=== PATIENT | female | born 1935 | race Caucasian/White ===

== ENCOUNTER → 2017-08-11 | Outpatient (CLI) | payer MEDICARE, BC ==
--- NOTE | 2017-08-11 18:44 | MR ---
EXAMINATION TYPE: MR brain wo/w con DATE OF EXAM: 08/11/2017 COMPARISON: NONE HISTORY: Memory loss, change in gait, urinary incontinence TECHNIQUE: Multiplanar, multisequence images of the brain and brainstem is performed without and with IV contras t, utilizing 7 mL intravenous Gadavist . FINDINGS: Artifact is present. Diffusion weighted images demonstrate no evidence of a recent infarct or other diffusion abnormality. There is no extra-axial fluid collection. Periventricular, subcorti eber white matter shows scattered and confluent hyperintensity on inversion recovery and T2-weighted s equences. No evident hemorrhage. The ventricular system and cisternal spaces are prominent thought to be in accordance with the degree of cortical atrophy. The brain volume is age appropriate, cortical atrophy is present.. Midline structures demonstrate normal morphology, there is a partially empty sella. The craniocervic al junction appears within normal limits. Post contrast images demonstrate no abnormal enhancement. The dural venous sinuses appear patent. The visualized sinuses are remarkable for minimal inflammator y change in the ethmoid air cells, maxillary sinus and the globes are intact. IMPRESSION: Age-related changes of atrophy and probable chronic small vessel ischemia. Confluent bakari ventricular white matter increased signal on inversion recovery and T2-weighted sequences could possi avinash represent transependymal flow of cerebrospinal fluid, correlate for normal pressure hydrocephalus
== END | disposition home or self-care (01) ==
LOC: RADMRIMAIN 16:52
PROVIDERS: ATTEND Family Medicine
DX: G31.9 Degenerative disease of nervous system, unspecified (principal); R90.82 White matter disease, unspecified; R32 Unspecified urinary incontinence
CPT/HCPCS: 70553; A9581

== ENCOUNTER → 2018-01-16 | Outpatient (CLI) | payer MEDICARE, BC ==
--- NOTE | 2018-01-16 16:55 | BD ---
EXAMINATION TYPE: Axial Bone Density DATE OF EXAM: 01/16/2018 COMPARISON: 01.15.2016 CLINICAL HISTORY: 82 YR OLD FEMALE....ICD-10 CODE: HX OF BREAST CANCER, Z79.890 POST MENOPAUSAL Height: 58 Weight: 171 FRAX RISK QUESTIONS: NOTHING TO NOTE HERE RISK FACTORS HISTORY OF: Diet low in dairy products/other sources of calcium: NO Postmenopausal woman: YES, 52 YRS OLD Lost more than 2 inches in height since high school: YES Frequent falls: ELDERLY, UNSTEADY MEDICATIONS: Additional Medications: HX OF BREAST CANCER, HX OF RADIATION, BP MEDS, STATINS FOR CHOLESTEROL, CALCIUM AND VIT D Additional History: HX OF BR CANCER, HYPERTENSION, BILAT KNEE REPLACEMENTS, ARTHRITIS EXAM MEASUREMENTS: Bone mineral densitometry was performed using the [employer] System. Bone mineral density as measured about the Lumbar spine is: ----- L1-L4(G/cm2): 1.533 T Score Values are as follows: ----- L1: 2.2 ----- L2: 2.8 ----- L3: 2.5 ----- L4: 3.7 ----- L1-L4: 2.9 Bone mineral density has: Decreased -0.5% since study of: 01.15.2016 Bone mineral density about the R hip (g/cm2): 0.990 Bone mineral density about the L hip (g/cm2): 1.059 T Score values are as follows: -----R Neck: -1.2 -----L Neck: -0.9 -----R Total: -0.1 -----L Total: 0.4 Bone mineral density has: Decreased -0.2% since study of: 01.15.2016 FRAX%s: THERE IS A 11.2% CHANCE OF A MAJOR OSTEOPOROTIC FX AND A 2.4% FOR A HIP FX......PROBABILIT Y OF FX IN 10 YRS TIME IMPRESSION: Osteopenia (T Score between -2.5 and -1). There is slightly increased risk of fracture and the patient may be considered for treatment. Re-Screen 2-5 years. NOTE: T-SCORE=SD OF THE YOUNG ADULT MEAN.
== END | disposition home or self-care (01) ==
LOC: EDBD → RADBDWWP 09:50 → EDBD 10:00
PROVIDERS: ATTEND Internal Medicine Hematology & Oncology
DX: M85.89 Other specified disorders of bone density and structure, multiple sites (principal); C50.812 Malignant neoplasm of overlapping sites of left female breast; Z79.890 Hormone replacement therapy
CPT/HCPCS: 77080

== ENCOUNTER → 2018-06-19 | Outpatient (CLI) | payer MEDICARE, BC ==
--- NOTE | 2018-06-28 08:10 | MM ---
Reason for exam: additional evaluation requested from prior study. History: Patient is postmenopausal and has history of breast cancer at age 81. Taking antineoplastic for 2 years. Left breast mastectomy 2016. Chemotherapy Physical Findings: Nurse did not find any significant physical abnormalities on exam. MG 3D Diag Mammo W/Cad RT CC and MLO view(s) were taken of the right breast. The breast tissue is heterogeneously dense. This may lower the sensitivity of mammography. There are benign-appearing scattered round and vascular calcifications. No suspicious abnormality. No significant new finding when compared with prior studies. These results were verbally communicated with the patient and result sheet given to the patient on 06/26/18. ASSESSMENT: Benign, BI-RAD 2 RECOMMENDATION: Follow-up diagnostic mammogram of the right breast in 1 year.
== END | disposition home or self-care (01) ==
LOC: RADMAMWWP 12:56
PROVIDERS: ATTEND Internal Medicine Hematology & Oncology
DX: Z08 Encounter for follow-up examination after completed treatment for malignant neoplasm (principal); Z85.3 Personal history of malignant neoplasm of breast
CPT/HCPCS: 77065; G0279; 77061

== ENCOUNTER 2018-07-22 11:59 | Emergency (ER) | payer MEDICARE, BC ==
[2018-07-22] MEDS ORDERED: SODIUM CHLORIDE 0.9% 500 ML 500 ML IV STA (12:35)
[2018-07-22 12:50] LABS: Basophils % (A) 0 %; Eosinophils # (A) 0.2 k/uL (0-0.7); Eosinophils % (A) 2 %; HCT 43.5 % (34.0-46.0); HGB 14.2 gm/dL (11.4-16.0); Lymphocytes # (A) 0.8 k/uL (1.0-4.8); Lymphocytes % (A) 8 %; MCH 29.8 pg (25.0-35.0); MCHC 32.6 g/dL (31.0-37.0); MCV 91.4 fL (80.0-100.0); Mean Platelet Volume 7.5; Monocytes # (A) 0.6 k/uL (0-1.0); Monocytes % (A) 6 %; Neutrophils # (A) 8.2 k/uL (1.3-7.7); Neutrophils % (A) 84 %; Platelet Count 270 k/uL (150-450); RBC 4.75 m/uL (3.80-5.40); RDW 13.5 % (11.5-15.5); WBC 9.8 k/uL (3.8-10.6)
--- NOTE | 2018-07-22 12:55 | ED ---
General Adult HPI - General Chief complaint: Syncope Stated complaint: syncope Time Seen by Provider: 07/22/18 12:22 Source: patient, family, RN notes reviewed, old records reviewed Mode of arrival: wheelchair Limitations: no limitations - History of Present Illness Initial comments: 83-year-old female presenting with near syncopal episode. History obtained from the patient, and her family who is at bedside. Just prior to arrival patient was standing, felt very lightheaded and felt as though she is going to pass out. Blood pressure was obtained at home and was low, patient was pale and diaphoretic. She denies any preceding chest pain or palpitations. Denies vomiting or diarrhea. Denies fever or chills. She states she has had some intermittent crampy abdominal pain over the past several days and has had an episode of diarrhea. She has history of hypertension, is on multiple antihypertensive medications, she didn't take his medications this morning. - Related Data Home Medications Medication Instructions Recorded Confirmed Carbidopa-Levodopa 10-100 mg 1 tab PO TID 07/22/18 07/22/18 [Sinemet 10-100] Hydrochlorothiazide [Hydrodiuril] 25 mg PO DAILY 07/22/18 07/22/18 Isosorbide Mononitrate ER [Imdur] 30 mg PO DAILY 07/22/18 07/22/18 Letrozole [Femara] 2.5 mg PO DAILY 07/22/18 07/22/18 Metoprolol Succinate [Toprol XL] 50 mg PO HS 07/22/18 07/22/18 Modafinil [Provigil] 100 mg PO QAM 07/22/18 07/22/18 Rosuvastatin [Crestor] 20 mg PO DAILY 07/22/18 07/22/18 acetaZOLAMIDE [Diamox Sequels] 500 mg PO HS 07/22/18 07/22/18 Previous Rx's Medication Instructions Recorded Cephalexin [Keflex] 500 mg PO Q12HR #20 cap 07/22/18 Allergies Allergy/AdvReac Type Severity Reaction Status Date / Time No Known Allergies Allergy Verified 07/22/18 14:21 Review of Systems ROS Statement: Those systems with pertinent positive or pertinent negative responses have been documented in the HPI. ROS Other: All systems not noted in ROS Statement are negative. Past Medical History Past Medical History: Atrial Fibrillation, Hypertension History of Any Multi-Drug Resistant Organisms: None Reported Past Surgical History: Adenoidectomy, Section, Cholecystectomy, Orthopedic Surgery, Tonsillectomy Additional Past Surgical History / Comment(s): mastectomy, daniel knee replacement Past Psychological History: Anxiety, Depression Smoking Status: Never smoker Past Alcohol Use History: Rare Past Drug Use History: None Reported General Exam Limitations: no limitations General appearance: alert, in no apparent distress Head exam: Present: atraumatic, normocephalic Eye exam: Present: normal appearance, PERRL, EOMI ENT exam: Present: mucous membranes dry Neck exam: Absent: normal inspection, tenderness, meningismus Respiratory exam: Present: normal lung sounds bilaterally. Absent: respiratory distress, wheezes, rales Cardiovascular Exam: Present: regular rate, normal rhythm GI/Abdominal exam: Present: soft. Absent: distended, tenderness, guarding Extremities exam: Present: normal inspection, normal capillary refill. Absent: pedal edema Back exam: Present: normal inspection Neurological exam: Present: alert, oriented X3, CN II-XII intact. Absent: motor sensory deficit Psychiatric exam: Present: normal affect, normal mood Skin exam: Present: warm, dry, intact. Absent: cyanosis, diaphoretic Course Vital Signs 07/22/18 07/22/18 07/22/18 12:16 12:39 13:54 Temperature 97.7 F Pulse Rate 61 59 L Pulse Rate [ 64 Right Sitting] Pulse Rate [ 67 Right Standing] Pulse Rate [ 59 L Right Supine] Respiratory 20 18 Rate Blood Pressure 115/70 123/86 Blood Pressure 110/60 [Right Arm Sitting] Blood Pressure 103/71 [Right Arm Standing] Blood Pressure 108/58 [Right Arm Supine] O2 Sat by Pulse 98 96 Oximetry EKG Findings - EKG Comments: EKG Findings:: EKG: Normal sinus rhythm, possible inferior infarct Q waves in the inferior leads, rate of 61, AR interval 180, QRS duration 82, QTC 440, no ST segment changes Medical Decision Making - Medical Decision Making 83-year-old female with near syncopal episode. Patient does clinically appear dehydrated, has had some diarrhea. Workup in the emergency department reveals normal CBC, normal CMP with the exception of a mildly elevated creatinine 1.16. Troponin is negative. Urinalysis is positive for signs of infection, positive nitrate, 97 white cells. Chest x-ray negative for focal findings, CT abdomen and pelvis negative for any acute intra-abdominal process. I reevaluation, patient is eager for discharge. Family is at bedside is agreeable with discharge. Did offer observation for telemetry, repeat evaluation. Patient prefers to be discharged home, will encourage oral hydration at home. Will take antibiotics awaiting culture results. - Lab Data Result diagrams: 07/22/18 12:31 07/22/18 12:31 Lab Results 07/22/18 07/22/18 07/22/18 Range/Units 12:31 12:31 12:31 WBC 9.8 (3.8-10.6) k/uL RBC 4.75 (3.80-5.40) m/uL Hgb 14.2 (11.4-16.0) gm/dL Hct 43.5 (34.0-46.0) % MCV 91.4 (80.0-100.0) fL MCH 29.8 (25.0-35.0) pg MCHC 32.6 (31.0-37.0) g/dL RDW 13.5 (11.5-15.5) % Plt Count 270 (150-450) k/uL Neutrophils % 84 % Lymphocytes % 8 % Monocytes % 6 % Eosinophils % 2 % Basophils % 0 % Neutrophils # 8.2 H (1.3-7.7) k/uL Lymphocytes # 0.8 L (1.0-4.8) k/uL Monocytes # 0.6 (0-1.0) k/uL Eosinophils # 0.2 (0-0.7) k/uL Basophils # 0.0 (0-0.2) k/uL PT (9.0-12.0) sec INR (<1.2) APTT (22.0-30.0) sec Sodium 141 (137-145) mmol/L Potassium 3.9 (3.5-5.1) mmol/L Chloride 109 H (98-107) mmol/L Carbon Dioxide 22 (22-30) mmol/L Anion Gap 10 mmol/L BUN 24 H (7-17) mg/dL Creatinine 1.16 H (0.52-1.04) mg/dL Est GFR (CKD-EPI)AfAm 51 (>60 ml/min/1.73 sqM) Est GFR (CKD-EPI)NonAf 44 (>60 ml/min/1.73 sqM) Glucose 108 H (74-99) mg/dL Calcium 9.6 (8.4-10.2) mg/dL Magnesium 2.0 (1.6-2.3) mg/dL Total Bilirubin 0.7 (0.2-1.3) mg/dL AST 22 (14-36) U/L ALT 15 (9-52) U/L Alkaline Phosphatase 60 (38-126) U/L Total Creatine Kinase 127 (30-135) U/L CK-MB (CK-2) 2.4 (0.0-2.4) ng/mL CK-MB (CK-2) Rel Index 1.9 Troponin I <0.012 (0.000-0.034) ng/mL Total Protein 6.9 (6.3-8.2) g/dL Albumin 4.3 (3.5-5.0) g/dL Urine Color Urine Appearance (Clear) Urine pH (5.0-8.0) Ur Specific [place] (1.001-1.035) Urine Protein (Negative) Urine Glucose (UA) (Negative) Urine Ketones (Negative) Urine Blood (Negative) Urine Nitrite (Negative) Urine Bilirubin (Negative) Urine Urobilinogen (<2.0) mg/dL Ur Leukocyte Esterase (Negative) Urine RBC (0-5) /hpf Urine WBC (0-5) /hpf Ur Squamous Epith Cells (0-4) /hpf Urine Bacteria (None) /hpf Urine Mucus (None) /hpf 07/22/18 07/22/18 Range/Units 12:31 12:55 WBC (3.8-10.6) k/uL RBC (3.80-5.40) m/uL Hgb (11.4-16.0) gm/dL Hct (34.0-46.0) % MCV (80.0-100.0) fL MCH (25.0-35.0) pg MCHC (31.0-37.0) g/dL RDW (11.5-15.5) % Plt Count (150-450) k/uL Neutrophils % % Lymphocytes % % Monocytes % % Eosinophils % % Basophils % % Neutrophils # (1.3-7.7) k/uL Lymphocytes # (1.0-4.8) k/uL Monocytes # (0-1.0) k/uL Eosinophils # (0-0.7) k/uL Basophils # (0-0.2) k/uL PT 10.4 (9.0-12.0) sec INR 1.0 (<1.2) APTT 23.4 (22.0-30.0) sec Sodium (137-145) mmol/L Potassium (3.5-5.1) mmol/L Chloride (98-107) mmol/L Carbon Dioxide (22-30) mmol/L Anion Gap mmol/L BUN (7-17) mg/dL Creatinine (0.52-1.04) mg/dL Est GFR (CKD-EPI)AfAm (>60 ml/min/1.73 sqM) Est GFR (CKD-EPI)NonAf (>60 ml/min/1.73 sqM) Glucose (74-99) mg/dL Calcium (8.4-10.2) mg/dL Magnesium (1.6-2.3) mg/dL Total Bilirubin (0.2-1.3) mg/dL AST (14-36) U/L ALT (9-52) U/L Alkaline Phosphatase (38-126) U/L Total Creatine Kinase (30-135) U/L CK-MB (CK-2) (0.0-2.4) ng/mL CK-MB (CK-2) Rel Index Troponin I (0.000-0.034) ng/mL Total Protein (6.3-8.2) g/dL Albumin (3.5-5.0) g/dL Urine Color Yellow Urine Appearance Cloudy H (Clear) Urine pH 5.5 (5.0-8.0) Ur Specific [place] 1.015 (1.001-1.035) Urine Protein Negative (Negative) Urine Glucose (UA) Negative (Negative) Urine Ketones Negative (Negative) Urine Blood Negative (Negative) Urine Nitrite Positive H (Negative) Urine Bilirubin Negative (Negative) Urine Urobilinogen <2.0 (<2.0) mg/dL Ur Leukocyte Esterase Large H (Negative) Urine RBC 3 (0-5) /hpf Urine WBC 97 H (0-5) /hpf Ur Squamous Epith Cells 2 (0-4) /hpf Urine Bacteria Few H (None) /hpf Urine Mucus Rare H (None) /hpf Disposition Clinical Impression: Dehydration, Near syncope, UTI (urinary tract infection) Disposition: HOME SELF-CARE Condition: Good Instructions (If sedation given, give patient instructions): Dehydration (ED), Urinary Tract Infection in Women (ED) Prescriptions: Cephalexin [Keflex] 500 mg PO Q12HR #20 cap Is patient prescribed a controlled substance at d/c from ED?: No Referrals: Hazel Robles DO [Primary Care Provider] - 1-2 days Time of Disposition: 15:10
[2018-07-22 12:58] LABS: Albumin 4.3 g/dL (3.5-5.0); Calcium 9.6 mg/dL (8.4-10.2); Partial Thromboplastin Time 23.4 sec (22.0-30.0); Potassium 3.9 mmol/L (3.5-5.1); Prothrombin Time 10.4 sec (9.0-12.0); Total Bilirubin 0.7 mg/dL (0.2-1.3); Total Protein 6.9 g/dL (6.3-8.2)
[2018-07-22 13:15] LABS: Creatine Kinase 127 U/L (30-135)
[2018-07-22 13:18] LABS: Appearance,Urine Cloudy (Clear); Bacteria,Urine Few /hpf; Bilirubin,Urine Negative (Negative); Blood,Urine Negative (Negative); Color,Urine Yellow; Glucose,Urine (UA) Negative (Negative); Ketones,Urine Negative (Negative); Leukocyte Esterase,Urine Large (Negative); Mucus,Urine Rare /hpf; Nitrite,Urine Positive (Negative); PH, Urine 5.5 (5.0-8.0); Protein,Urine Negative (Negative); RBC,Urine 3 /hpf (0-5); Specific Gravity,Urine 1.015 (1.001-1.035); Squamous Epithelial Cell,Urine 2 /hpf (0-4); Urobilinogen,Urine <2.0 mg/dL (<2.0); WBC,Urine 97 /hpf (0-5)
[2018-07-22 13:28] LABS: Creatine Kinase MB 2.4 ng/mL (0.0-2.4); Troponin I <0.012 ng/mL (0.000-0.034)
--- NOTE | 2018-07-22 13:49 | XR ---
EXAMINATION TYPE: XR chest 2V DATE OF EXAM: 07/22/2018 COMPARISON: 07/10/2015 HISTORY: Shortness of breath TECHNIQUE: Frontal and lateral views of the chest are obtained. FINDINGS: Scattered senescent parenchymal changes noted. Hyperinflation compatible with COPD. Chronic left basi lar pleural-parenchymal opacity. No evidence for infiltrate. No evidence for atelectasis. Heart size is stable. Mediastinal structures are stable and grossly unremarkable. No evidence for hilar prominence. Degenerative changes dorsal spine. Fractures of right ribs 5 and 6 of uncertain age and/or etiology. Correlate clinically. IMPRESSION: 1. No evidence for acute pulmonary disease.
[2018-07-22 13:55] VITALS: RESP 18
--- NOTE | 2018-07-22 14:23 | CT ---
EXAMINATION TYPE: CT abdomen pelvis wo con DATE OF EXAM: 07/22/2018 COMPARISON: None HISTORY: pain, history of stones CT DLP: 588 mGycm Examination of the solid and hollow viscera is limited given the lack of contrast. FINDINGS: LUNG BASES: No evidence for nodule. No evidence for infiltrate. Elevation left hemidiaphragm. LIVER/GB: The gallbladder is unremarkable. No space-occupying hepatic lesion. PANCREAS: No pancreatic mass identified. No inflammatory process seen. SPLEEN: No evidence for splenomegaly. No intrasplenic lesions seen. ADRENALS: No adrenal nodules identified. No evidence for thickening. KIDNEYS: No evidence for renal mass. No nephrolithiasis. No hydronephrosis. BOWEL: Nonvisualization of the appendix. No evidence of bowel obstruction. No inflammatory process. M oderate fecal stasis. Scattered colonic diverticulosis without diverticulitis. Lymph nodes: No evidence for adenopathy greater than 1 cm. Abdominal aorta: Atheromatous changes seen. No evidence for aneurysm. Genital organs: No significant abnormality. Other: IVC filter noted. Severe degenerative change lumbar spine. IMPRESSION: 1. No acute intra-abdominal process identified.
[2018-07-22 15:25] VITALS: BP 124/76; PULSE 64; TEMP 98.2
== END 2018-07-22 15:29 | disposition home or self-care (01) ==
LOC: EC 11:59
DX: N39.0 Urinary tract infection, site not specified (principal); R55 Syncope and collapse; E86.0 Dehydration; R79.89 Other specified abnormal findings of blood chemistry; R19.7 Diarrhea, unspecified; I48.91 Unspecified atrial fibrillation; I10 Essential (primary) hypertension; Z90.49 Acquired absence of other specified parts of digestive tract; Z96.653 Presence of artificial knee joint, bilateral; Z79.811 Long term (current) use of aromatase inhibitors; Z79.899 Other long term (current) drug therapy
CPT/HCPCS: 36415; 93005; 80053; 82550; 82553; 83735; 84484; 85025; 85610; 85730; 81001; 87086; 71046; 74176; 99285; 96365; 96361; J0696

== ENCOUNTER → 2019-07-21 | Outpatient (CLI) | payer MEDICARE ==
--- NOTE | 2019-07-21 13:56 | MM ---
Reason for exam: additional evaluation requested from prior study. Last mammogram was performed 1 year and 1 month ago. History: Patient is postmenopausal and has history of breast cancer at age 81. Mastectomy of the left breast, 2016. Benign cyst aspiration of the right breast. Taking antineoplastic for 2 years. Physical Findings: Nurse did not find any significant physical abnormalities on exam. MG 3D Diag Mammo W/Cad RT CC and MLO view(s) were taken of the right breast. Prior study comparison: June 19, 2018, right breast MG 3d diag mammo w/cad RT. The breast tissue is heterogeneously dense. This may lower the sensitivity of mammography. No suspicious abnormality. No significant new findings when compared with previous films. These results were verbally communicated with the patient and result sheet given to the patient on 07/21/19. ASSESSMENT: Negative, BI-RAD 1 RECOMMENDATION: Routine screening mammogram of the right breast in 1 year.
--- NOTE | 2019-07-21 15:12 | BD ---
EXAMINATION TYPE: Axial Bone Density DATE OF EXAM: 07/21/2019 COMPARISON: 01/16/2018 CLINICAL HISTORY: N 95.1 Height: 58 inches Weight: 175 FRAX RISK QUESTIONS: Alcohol (3 or more units per day): no Family History (Parent hip fracture): no Glucocorticoids (More than 3mos): no (Ex: prednisone, prednisolone, methylprednisolone, dexamethasone, and hydrocortisone). History of Fracture in Adulthood: yes, toe Secondary Osteoporosis: 1. Type 1 Diabetes: no 2. Hyperthyroidism: no 3. Menopause before 45: no 4. Malnutrition: no 5. Chronic liver disease: no Rheumatoid Arthritis: no Current Tobacco Use: no RISK FACTORS HISTORY OF: Family History of Osteoporosis: no Active: yes Diet low in dairy products/other sources of calcium: no Postmenopausal woman: yes Take estrogen and/or progesterone medications: no Lost more than 2 inches in height since high school: unsure, states may have been about 5ft 1 inch ta ll at one time Frequent falls: no recent falls Poor Health: no Hyperparathyroidism: no Adrenal Insufficiency: no MEDICATIONS: Prednisone or other steroids: no Thyroid Medications: no Osteoporosis Medications:no Additional Medications: blood pressure med Additional History: breast CA/radiation age 81/ past history of antineoplastic for 2 years; bilateral knee replacements EXAM MEASUREMENTS: Bone mineral densitometry was performed using the [employer] System. Bone mineral density as measured about the Lumbar spine is: ----- L1-L4(G/cm2): 1.463 T Score Values are as follows: ----- L2: 1.8 ----- L3: 2.2 ----- L4: 3.3 ----- L1-L4: 2.4 Bone mineral density has: Decreased -4.4% since study of: 01/16/2018 Bone mineral density about the R hip (g/cm2): 0.897 Bone mineral density about the L hip (g/cm2): 0.904 T Score values are as follows: -----R Neck: -1.0 -----L Neck: -1.0 -----R Total: -0.6 -----L Total: -0.2 Bone mineral density has: Decreased -6.5% since study of: 01/16/2018 IMPRESSION: Normal (Values between +1 and -1 indicate normal bone mass). Values are borderline for osteopenia. C onsider repeating this study in 5 years or sooner if there is some new clinical indication. NOTE: T-SCORE=SD OF THE YOUNG ADULT MEAN.
== END | disposition home or self-care (01) ==
LOC: RADMAMWWP 12:35
PROVIDERS: ATTEND Internal Medicine Hematology & Oncology
DX: Z08 Encounter for follow-up examination after completed treatment for malignant neoplasm (principal); Z79.890 Hormone replacement therapy; M89.9 Disorder of bone, unspecified; N95.1 Menopausal and female climacteric states; Z85.3 Personal history of malignant neoplasm of breast
CPT/HCPCS: 77080; 77065; G0279; 77061

== ENCOUNTER → 2021-03-19 | Outpatient (CLI) | payer MEDICARE ==
--- NOTE | 2021-03-20 07:31 | MM ---
Reason for exam: screening (asymptomatic). Last mammogram was performed 1 year and 8 months ago. History: Patient is postmenopausal and has history of breast cancer at age 81. Mastectomy of the left breast, 2016. Benign cyst aspiration of the right breast. Taking antineoplastic for 2 years. Physical Findings: A clinical breast exam by your physician is recommended on an annual basis and results should be correlated with mammographic findings. MG 3D Scr [place] Unilateral W/Cad CC and MLO view(s) were taken of the right breast. Prior study comparison: July 21, 2019, right breast MG 3d diag mammo w/cad RT. June 19, 2018, right breast MG 3d diag mammo w/cad RT. The breast tissue is heterogeneously dense. This may lower the sensitivity of mammography. Finding: There are typically benign vascular, round calcifications. There is no discrete abnormality. ASSESSMENT: Benign, BI-RAD 2 RECOMMENDATION: Routine screening mammogram of the right breast in 1 year.
== END | disposition home or self-care (01) ==
LOC: RADMAMWWP 10:40
PROVIDERS: ATTEND Internal Medicine Hematology & Oncology
DX: Z12.31 Encounter for screening mammogram for malignant neoplasm of breast (principal)
CPT/HCPCS: 77067

== ENCOUNTER → 2022-04-15 | Outpatient (CLI) | payer MEDICARE ==
--- NOTE | 2022-04-16 09:42 | MR ---
EXAMINATION TYPE: MR brain wo/w con DATE OF EXAM: 04/15/2022 COMPARISON: MR brain 06/23/2021. HISTORY: Dizzy spells, falls, balance issues. TECHNIQUE: Multiplanar, multisequence images of the brain and brainstem is performed without and with IV contras t, utilizing 7 mL intravenous Gadavist . FINDINGS: Diffusion weighted images demonstrate no evidence of a recent infarct or other diffusion ab normality. There is no extra-axial fluid collection. There is scattered white matter changes through out the deep white matter. The ventricular system is dilated in proportion to cerebral atrophy. Cist ernal spaces are normal in size and appearance. The brain volume demonstrates generalized atrophy ch anges. Midline structures demonstrate normal morphology. The craniocervical junction appears within normal limits. Post contrast images demonstrate no abnormal enhancement. The dural venous sinuses appear pa tent. The visualized sinuses are clear. Bilateral aphakia. IMPRESSION: 1. No evidence of intracranial mass, acute/subacute infarct, or abnormal enhancement. 2. Nonspecific white matter changes, likely related to small vessel ischemic disease
== END | disposition home or self-care (01) ==
LOC: RADMRIMAIN 18:05
PROVIDERS: ATTEND Family Medicine
DX: G93.89 Other specified disorders of brain (principal); F03.90 Unspecified dementia, unspecified severity, without behavioral disturbance, psychotic disturbance, mood disturbance, and anxiety; R26.89 Other abnormalities of gait and mobility
CPT/HCPCS: 70553; A9585

== ENCOUNTER → 2022-04-29 | Outpatient (CLI) | payer MEDICARE ==
--- NOTE | 2022-04-30 09:10 | MM ---
Reason for Exam: Screening (asymptomatic). Last mammogram was performed 1 year(s) and 1 month(s) ago. Patient History: Menarche at age 13. First Full-Term at age 22. Postmenopausal. Breast cancer, left, age 81. Benign Cyst Aspiration on the right side. 2016, Mastectomy on the Left side. Prior Study Comparison: 06/19/2018 Right Diagnostic Mammogram, [facility]. 07/21/2019 Right Diagnostic Mammogram, [facility]. 03/19/2021 Bilateral Screening Mammogram, [facility]. Tissue Density: The breast tissue is heterogeneously dense. This may lower the sensitivity of mammography. Findings: Analyzed By CAD. There is no suspicious group of microcalcifications or new suspicious mass in the right breast. No significant change from prior exams. Overall Assessment: Benign, BI-RAD 2 Management: Screening Mammogram of the right breast in 1 year. A clinical breast exam by your physician is recommended on an annual basis and results should be correlated with mammographic findings. Electronically signed and approved by: Naren Akhtar D.O.
== END | disposition home or self-care (01) ==
LOC: RADMAMWWP 14:05
PROVIDERS: ATTEND Internal Medicine Hematology & Oncology
DX: Z12.31 Encounter for screening mammogram for malignant neoplasm of breast (principal); Z85.3 Personal history of malignant neoplasm of breast
CPT/HCPCS: 77067

== ENCOUNTER → 2023-02-06 | Outpatient (CLI) | payer MEDICARE ==
[2023-02-06 08:31] LABS: African American GFR (CKD) 72 (>60 ml/min/1.73 sqM); Blood Urea Nitrogen 21 mg/dL (7-17); Non-African American GFR(CKD) 63 (>60 ml/min/1.73 sqM)
--- NOTE | 2023-02-06 10:31 | CT ---
EXAMINATION TYPE: CT ChestAbdPelvis w con CT DLP: 1721 mGycm, Automated exposure control for dose reduction was used. DATE OF EXAM: 02/06/2023 10:05 AM COMPARISON: CT abdomen pelvis 07/22/2018 CLINICAL INDICATION:Female, 87 years old with history of C50.812 BREAST CANCER; [facility], BREAST CANCER, M ASECTOMY OF LEFT BREAST Technique: Multiple axial images of the chest, abdomen, and pelvis were obtained following the intrav enous administration of 100 mL Isovue-300. Oral contrast was administered. Two-dimensional coronal an d sagittal reconstructions were obtained. Findings: CHEST: LUNGS/ PLEURA: No pleural effusion, pneumothorax, focal consolidation. Bibasilar dependent subsegment al atelectasis. No suspicious pulmonary nodule or mass. AIRWAY: Patent and unremarkable.. HEART: Cardiomegaly is demonstrated. No pericardial effusion. Moderate coronary artery calcifications . MEDIASTINUM: No evidence of adenopathy. VASCULATURE: No aortic aneurysm. Atherosclerotic calcification of the aorta and its branches. MUSCULOSKELETAL: No acute osseous abnormalities. No aggressive osseous lesion. Bilateral shoulder art hropathy. SOFT TISSUES/LYMPH NODES: Postsurgical changes from left mastectomy. External left breast structure c reates streak artifact which limits evaluation. There is a 2.3 cm lesion in the region of the left br east with heterogenous enhancement (series 3, image 209). No axillary adenopathy identified. Postsurg ical changes from left axillary lymph node dissection. LOWER NECK: No significant findings. ABDOMEN: ABDOMEN LIVER: Unremarkable GALLBLADDER AND BILE DUCTS: Unremarkable. PANCREAS: Unremarkable. SPLEEN: Unremarkable. ADRENAL GLANDS: Unremarkable. KIDNEYS AND URETERS: No evidence of hydronephrosis or renal calculus. The kidneys enhance symmetrical ly. PELVIS BLADDER: Single focus of nondependent gas within the inner bladder. REPRODUCTIVE: Unremarkable. ABDOMEN & PELVIS STOMACH AND BOWEL: Small hiatal hernia, duodenum is unremarkable. Enteric contrast reaches the transv erse colon. No focal bowel wall thickening or surrounding inflammatory changes. No evidence of bowel obstruction. PERITONEUM: No evidence of pneumoperitoneum or free fluid. VASCULATURE: Moderate atherosclerotic calcifications are present throughout the abdominal aorta and i ts branches. No abdominal aortic aneurysm. IVC filter identified. Few pelvic phleboliths. MUSCULOSKELETAL: No acute osseous abnormalities. Moderate multilevel degenerative disc disease. 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 LYMPH NODES: No gross evidence for lymphadenopathy. SOFT TISSUE/ABDOMINAL WALL: Postsurgical changes of the right lower anterior abdominal wall. IMPRESSION: 1. Postsurgical changes from left mastectomy with a 2.3 cm enhancing lesion along the left lateral c hest wall. Further evaluation with ultrasound is recommended. 2. Single focus of gas within the nondependent portion of the urinary bladder. Correlate for recent instrumentation otherwise correlate with urinalysis for cystitis. 3. No evidence for adenopathy within the chest, abdomen or pelvis.
== END | disposition home or self-care (01) ==
LOC: RADCTMAIN 07:42
PROVIDERS: ATTEND Internal Medicine Hematology & Oncology
DX: C50.812 Malignant neoplasm of overlapping sites of left female breast (principal); Z90.12 Acquired absence of left breast and nipple
CPT/HCPCS: 82565; 84520; 71260; 74177; 36415; Q9967

== ENCOUNTER → 2023-07-09 | Outpatient (CLI) | payer MEDICARE ==
--- NOTE | 2023-07-09 12:22 | XR ---
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 FINDINGS: Lungs/Pleura: Elevated left diaphragm. There is no evidence of pleural effusion, focal consolidation, or pneumothorax. Pulmonary vascularity: Unremarkable. Heart/mediastinum: Cardiomediastinal silhouette is unremarkable. Musculoskeletal: No acute osseous pathology. Left axillary surgical clips are present. IMPRESSION: Elevated left diaphragm, no acute cardiopulmonary disease/process.
== END | disposition home or self-care (01) ==
LOC: RADXRMAIN 12:01
PROVIDERS: ATTEND Internal Medicine Hematology & Oncology
DX: J98.6 Disorders of diaphragm (principal); C50.812 Malignant neoplasm of overlapping sites of left female breast; I26.99 Other pulmonary embolism without acute cor pulmonale; I82.5Z9 Chronic embolism and thrombosis of unspecified deep veins of unspecified distal lower extremity; R06.00 Dyspnea, unspecified
CPT/HCPCS: 71046